=== PATIENT | male | born 1980 | race African-American/Black ===

== ENCOUNTER 2022-05-10 12:45 | Emergency (ER) | payer OTHER, SELFPAY ==
[2022-05-10 12:47] VITALS: BP 99/61; PULSE 90; RESP 18; TEMP 36.6; O2SAT 98; BMI 22.8
--- NOTE | 2022-05-10 12:49 | ED_ITS ---
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, Patient is up to date with tetanous Onset (ago): minute(s) Location: other (right thumb) Place: work Patient tetanus UTD: Yes Context: accidental Related Data Previous Rx's Medication Instructions Recorded cephalexin 500 mg capsule 500 mg PO QID #20 caps 05/10/22 Allergies Allergy/AdvReac Type Severity Reaction Status Date / Time No Known Allergies Allergy Unverified 03/20/20 17:40 Review of Systems Constitutional: Constitutional: Reports no additional constitutional complaints Eyes: Eyes: Reports no additional eye complaints ENT: Denies dizziness Cardiovascular: Cardiovascular: Reports no additional cardiovascular complaints Respiratory: Respiratory: Reports as per HPI Gastrointestinal: Gastrointestinal: Reports no additional gastrointestinal complaints Musculoskeletal: Musculoskeletal: Reports no additional musculoskeletal complaints Integumentary/Breasts: Skin/Breast: Denies rash Neurologic: Reports system reviewed and no additional complaints, except as documented, Denies dizziness and Denies Sensory deficit (Neuro) Psychiatric: Psychiatric: Denies anxiety Physical Exam Const: General: healthy appearing Nutritional Appearance: average body habitus Orientation/consciousness: oriented to person and patient oriented x3 Limitations: no limitations HEENT: Head: Yes normal to inspection Ears: external ears normal General nose exam: Normal external nose present Mouth: Normal oral and palatal mucosa present and oropharynx normal Throat: Yes posterior oropharynx normal Eyes: General: appearance normal, both eyes and all related structures Neck: Other: supple Neck: Yes normal visual inspection Chest: Chest palpation & inspection: normal inspection of the chest Resp: Auscultation: clear to auscultation bilaterally Cardio: Jugular venous distension: no JVD Rate: regular rate Rhythm: regular rhythm Heart sounds: S1 normal heart sound present and S2 normal heart sound present GI: Inspection: Yes normal to inspection Palpation (GI): Soft to palpation, nontender and No hepatosplenomegaly present Auscultation: normal bowel sounds : General: Yes no CVA tenderness Back/Spine/Pelvis: Back: no CVA tenderness Skin: General skin exam: no rashes or lesions noted Neuro: General: oriented to person and patient oriented x3 Cranial nerves: Yes CN's II-XII intact bilaterally Motor exam (neuro): 5 motor strength present throughout Sensory Exam: No Sensory deficit (Neuro) Extrem: Other: right distal thumb avulsion through the nail, superficial. 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 he states the knife was clean Time: 12:50 Reevaluation #2: will dress with xeroform and dc home Time: 12:53 Discharge Plan Discharge Clinical Impression: Finger laceration Patient Disposition: Home, Self-Care Instructions: Finger Laceration (ED) Additional Instructions: redress wound in 3 days Prescriptions: New cephalexin 500 mg capsule 500 mg PO QID Qty: 20 0RF
--- NOTE | 2022-05-10 12:53 | PC.NURSE ---
UTD ON TETANUS
--- NOTE | 2022-05-10 13:02 | PC.NURSE ---
wound dressed with xeroform dressing and stretch bandage per MD orders
== END 2022-05-10 13:11 | disposition home or self-care (01) ==
LOC: HO.ED 13:09
PROVIDERS: Emergency Provider Emergency Medicine; PCP Internal Medicine
DX: S61.011A Laceration without foreign body of right thumb without damage to nail, initial encounter (principal); W26.0XXA Contact with knife, initial encounter; Y93.G1 Activity, food preparation and clean up; Y92.511 Restaurant or cafe as the place of occurrence of the external cause; Y99.0 Civilian activity done for income or pay
CPT/HCPCS: 99282; 99283